=== PATIENT | female | born 1990 | race Caucasian/White ===

== ENCOUNTER 2016-07-26 00:55 | Emergency (ER) | payer OTHER ==
[~2016-07-26] VITALS: Ht 157.5 cm; Wt 87.8 kg
[2016-07-26 01:00] VITALS: BP 129/77; PULSE 98; TEMP 37.1; O2SAT 99; Ht 157.5 cm; Wt 87.8 kg
--- NOTE | 2016-07-26 01:14 | EMERGENCY ROOM VISIT NOTE ---
History First contact with patient: 01:04 Chief Complaint: FOREIGNBODY ANY BODY PART Stated Complaint: SOMETHING STUCK IN EAR History of Present Illness The patient is a 25 year old female who presents to the Emergency Room for evaluation of a foreign body stuck in her right ear. The patient reports that she was cleaning her ear with a cleaning device and the tip of the device broke off inside her ear. She states that her and her significant other attempted to remove the object, but it pushed it further into her ear. She denies any pain or difficulty hearing. Review of Systems A complete 6 point review of systems was reviewed with the patient with pertinent positives and negatives as per history of present illness. All else were negative. Social History Smoking Status: Never Smoker Allergies Coded Allergies: BEE STING (Verified Allergy, Unknown, swelling, 07/26/16) Uncoded Allergies: STRAWBERRIES (Allergy, Unknown, hives, 07/26/16) Physical Exam Vital Signs Date Time Temp Pulse Resp B/P Pulse Ox O2 Delivery O2 Flow Rate FiO2 07/26/16 01:00 37.1 98 20 129/77 99 Room Air Physical Exam VITALS: Vitals are noted on the nurse's note and reviewed by myself. Vital signs stable. GENERAL: This is a 25-year-old female, in no acute distress, nondiaphoretic, well-developed well-nourished. EARS: There is a small proper object within the right external auditory canal. There is a small abrasion of the canal. Tympanic membrane pearly woodard without evidence of rupture. NEURO: Patient was alert and oriented to person place and time. Medical Decision & Procedures Medical Decision The patient was evaluated as above. She does have a foreign body in the right external auditory canal. This was easily removed with a pair of forceps. The tympanic membrane is without any laceration or rupture. There is a small abrasion in the canal. The patient was instructed not to put any objects in the ear in the future. She verbalized understanding and was discharged home in good condition. Impression Primary Impression: Foreign body in ear Departure Information Dispostion Home / Self-Care Condition GOOD Referrals No Doctor, Assigned (PCP) Patient Instructions [facility] Additional Instructions Do not put objects in your ears. Problem Qualifiers Primary Impression: Foreign body in ear Encounter type: initial encounter Laterality: right Qualified Codes: T16.1XXA - Foreign body in right ear, initial encounter
== END 2016-07-26 01:20 | disposition home or self-care (01) ==
LOC: C.EDB 00:57 → C.EDA 01:20
DX: T16.1XXA Foreign body in right ear, initial encounter (principal); X58.XXXA Exposure to other specified factors, initial encounter; Z91.018 Allergy to other foods; Z91.030 Bee allergy status